=== PATIENT | female | born 1985 | race Caucasian/White ===

== ENCOUNTER 2017-02-17 15:29 | Emergency (ER) | payer OTHER ==
[~2017-02-17] VITALS: Ht 170.2 cm; Wt 91.4 kg
[~2017-02-17 15:29] MED LIST: ALBU8.5H IH; PARO-37 PO
[2017-02-17] MEDS ORDERED: NAPR250T2 PO (15:44)
[2017-02-17] MEDS ORDERED: OMEP10 PO (15:44)
[2017-02-17 16:02] LABS: BASOPHILS % (AUTO) 0.3 % (0.0-2.0); EOSINOPHILS % (AUTO) 0.8 % (1.0-6.0); HEMATOCRIT 38.1 % (36-46); HEMOGLOBIN 12.9 g/dL (12.0-16.0); LYMPHOCYTES % (AUTO) 19.2 % (22.0-44.0); MEAN CORPUSCULAR HEMOGLOBIN 29.3 pg (26.0-34.0); MEAN CORPUSCULAR HGB CONC 33.9 G/dL (31.0-37.0); MEAN CORPUSCULAR VOLUME 87 fL (80-100); MONOCYTES # (AUTO) 0.4 K/uL (0.1-1.0); MONOCYTES % (AUTO) 4.4 % (2.0-9.0); NEUTROPHILS # (AUTO) 7.7 K/uL (1.8-7.7); NEUTROPHILS % (AUTO) 75.3 % (40.0-70.0); PLATELET COUNT (AUTO) 166 K/uL (150-450); WHITE BLOOD COUNT (AUTO) 10.2 K/uL (4.5-11.0)
[2017-02-17 16:55] VITALS: BP 110/74
[2017-02-17] MEDS ORDERED: LIDOCAINE HCL 5% TRANSDERMAL PATCH TD ONE (17:00)
== END 2017-02-17 17:20 | disposition home or self-care (01) ==
LOC: EMS 15:30
DX: N93.9 Abnormal uterine and vaginal bleeding, unspecified (principal); J45.909 Unspecified asthma, uncomplicated; Z88.8 Allergy status to other drugs, medicaments and biological substances; Z91.040 Latex allergy status
CPT/HCPCS: 86901; 99285